=== PATIENT | male | born 1975 | race African-American/Black ===

== ENCOUNTER 2017-02-23 21:37 | Emergency (ER) | payer MEDICAID, OTHER ==
[~2017-02-23] VITALS: Ht 180.3 cm; Wt 81.0 kg
[~2017-02-23 21:37] MED LIST: IOHEXOL-300 100 ML BOTTLE ONE; SODIUM CHLORIDE 0.9% 10ML VIAL ONE
[2017-02-23] MEDS ORDERED: SODIUM CHLORIDE 0.9% 1,000 ML IV ONE (22:33)
[2017-02-23] MEDS ORDERED: MORPHINE SULFATE 4 MG/ML CPJ (NOT FOR IM USE) IV STA (22:33)
[2017-02-23] MEDS ORDERED: ONDANSETRON HCL 4MG/2ML VIAL IV STA (22:33)
[2017-02-23 22:56] LABS: BASOPHILS % 0.3 % (0.0-2.0); EOSINOPHILS % 0.5 % (0.0-5.0); LYMPHOCYTES % 13.6 % (20.0-50.0); MEAN CORPUSCULAR HEMOGLOBIN 32.2 pg (28.0-32.0); MEAN CORPUSCULAR VOLUME 96.3 fL (80.0-94.0); MEAN PLATELET VOLUME 7.6 fl (7.4-10.4); MONOCYTES % 6.2 % (2.0-8.0); NEUTROPHILS % 79.4 % (40.0-76.0); PLATELET 229 x1000/uL (130-400); RED BLOOD CELL COUNT 3.73 mill/uL (4.7-6.1); RED CELL DISTRIBUTION WIDTH 13.1 % (11.6-14.6)
[2017-02-23 22:58] LABS: CHLORIDE 109 mEq/L (98-107)
[2017-02-23 23:04] LABS: CARBON DIOXIDE 25 mEq/L (21-32)
[2017-02-24] MEDS ORDERED: KETOROLAC 30MG/ML VIAL IV ONE (02:30)
[2017-02-24 02:44] VITALS: BP 116/68
== END 2017-02-24 02:47 | disposition home or self-care (01) ==
LOC: ER 21:37
DX: S01.112A Laceration without foreign body of left eyelid and periocular area, initial encounter (principal); S00.11XA Contusion of right eyelid and periocular area, initial encounter; M54.9 Dorsalgia, unspecified; F17.200 Nicotine dependence, unspecified, uncomplicated; W10.9XXA Fall (on) (from) unspecified stairs and steps, initial encounter; Y93.89 Activity, other specified; Y92.89 Other specified places as the place of occurrence of the external cause; Y99.8 Other external cause status
CPT/HCPCS: 36415; 70450; 70486; 71010; 72070; 72100; 74177; 80048; 85025; 96361; 96374; 96375; 99291; A4216; J1885; J2270; J2405; J7030; Q9967; Z7610

== ENCOUNTER 2018-03-14 15:19 | Emergency (ER) | payer MEDICAID ==
[2018-03-14 15:59] LABS: BASOPHILS % 0.5 % (0.0-2.0); EOSINOPHILS % 0.7 % (0.0-5.0); HEMATOCRIT. 39.2 % (42.0-52.0); HEMOGLOBIN. 13.1 g/dL (14.0-18.0); LYMPHOCYTES % 25.1 % (20.0-50.0); MEAN CORPUSCULAR HEMOGLOBIN 32.6 pg (28.0-32.0); MEAN PLATELET VOLUME 7.8 fl (7.4-10.4); MONOCYTES % 6.6 % (2.0-8.0); NEUTROPHILS % 67.1 % (40.0-76.0); PLATELET 223 x1000/uL (130-400); RED CELL DISTRIBUTION WIDTH 12.7 % (11.6-14.6)
[2018-03-14] MEDS ORDERED: LORAZEPAM 2MG/ML CPJ ONE (15:59)
[2018-03-14] MEDS ORDERED: LORAZEPAM 2MG/ML CPJ IV ONE (16:00)
[2018-03-14 16:01] LABS: CHLORIDE 112 mEq/L (98-107)
[2018-03-14 16:04] LABS: INR 1.1; PARTIAL THROMBOPLASTIN TIME 23.7 sec (23.4-31.0); PROTHROMBIN TIME 10.6 sec (9.1-11.1)
[2018-03-14 16:08] LABS: LDL CHOLESTEROL 143 mg/dL (5-100)
[2018-03-14] MEDS ORDERED: ALTEPLASE IV STA (16:13)
[2018-03-14] MEDS ORDERED: ALTEPLASE 100MG/VIAL IV STA (16:13)
[2018-03-14 16:20] LABS: ETHANOL BLOOD 305 mg/dL
[2018-03-14] MEDS ORDERED: IOHEXOL-350 100 ML BOTTLE ONE (17:08)
[2018-03-14] MEDS ORDERED: MORPHINE SULFATE 2 MG/ML CPJ (NOT FOR IM USE) IV ONE ×2 (17:45→20:45)
[2018-03-14 20:40] VITALS: BP 126/91
== END 2018-03-14 20:40 | disposition short-term general hospital (02) ==
LOC: ER 15:19
DX: I63.9 Cerebral infarction, unspecified (principal); G81.94 Hemiplegia, unspecified affecting left nondominant side; R47.81 Slurred speech; F10.129 Alcohol abuse with intoxication, unspecified; Y90.8 Blood alcohol level of 240 mg/100 ml or more; F17.210 Nicotine dependence, cigarettes, uncomplicated; F12.90 Cannabis use, unspecified, uncomplicated
CPT/HCPCS: 36415; 37195; 70450; 70496; 70498; 71045; 80053; 83721; 84484; 85025; 85610; 85730; 86850; 86900; 86901; 93005; 96374; 96375; 99291; G0482; J2060; J2270; J2997; Q9967

== ENCOUNTER 2018-11-15 03:16 | Emergency (ER) | payer MEDICAID ==
[~2018-11-15] VITALS: Ht 180.3 cm; Wt 173.0 kg
[2018-11-15] MEDS ORDERED: ACETAMINOPHEN 500MG TABLET PO ONE (04:15)
[2018-11-15 04:34] LABS: BASOPHILS % 0.7 % (0.0-2.0); EOSINOPHILS % 1.6 % (0.0-5.0); HEMATOCRIT. 37.3 % (42.0-52.0); HEMOGLOBIN. 12.5 g/dL (14.0-18.0); LYMPHOCYTES % 30.1 % (20.0-50.0); MEAN CORPUSCULAR VOLUME 98.9 fL (80.0-94.0); MONOCYTES % 11.3 % (2.0-8.0); NEUTROPHILS % 56.3 % (40.0-76.0); PLATELET 216 x1000/uL (130-400); RED BLOOD CELL COUNT 3.78 mill/uL (4.7-6.1); RED CELL DISTRIBUTION WIDTH 13.7 % (11.6-14.6)
[2018-11-15 04:37] LABS: CHLORIDE 108 mEq/L (98-107)
[2018-11-15] MEDS ORDERED: POTASSIUM CHLORIDE 20MEQ TABLET SR PO NR (05:00)
[2018-11-15 05:31] VITALS: BP 131/90
== END 2018-11-15 06:00 | disposition home or self-care (01) ==
LOC: ER 04:09
DX: K62.5 Hemorrhage of anus and rectum (principal); R10.9 Unspecified abdominal pain; F12.10 Cannabis abuse, uncomplicated; F17.210 Nicotine dependence, cigarettes, uncomplicated; Z72.89 Other problems related to lifestyle
CPT/HCPCS: 36415; 74176; 80053; 83690; 85025; 86850; 86900; 86901; 99284; 99406; Z7610

== ENCOUNTER 2019-06-07 18:44 | Emergency (ER) | payer SELFPAY ==
[~2019-06-07] VITALS: Ht 182.9 cm; Wt 77.0 kg
[2019-06-07] MEDS ORDERED: SODIUM CHLORIDE 0.9% 1,000 ML IV ONE (20:55)
[2019-06-07 21:23] LABS: BASOPHILS % 0.3 % (0.0-2.0); EOSINOPHILS % 0.1 % (0.0-5.0); HEMATOCRIT. 33.4 % (42.0-52.0); HEMOGLOBIN. 11.3 g/dL (14.0-18.0); LYMPHOCYTES % 9.4 % (20.0-50.0); MEAN CORPUSCULAR HEMOGLOBIN 33.1 pg (28.0-32.0); MEAN CORPUSCULAR VOLUME 97.9 fL (80.0-94.0); MEAN PLATELET VOLUME 7.4 fl (7.4-10.4); MONOCYTES % 6.5 % (2.0-8.0); NEUTROPHILS % 83.7 % (40.0-76.0); PLATELET 206 x1000/uL (130-400); RED BLOOD CELL COUNT 3.41 mill/uL (4.7-6.1); RED CELL DISTRIBUTION WIDTH 12.8 % (11.6-14.6)
[2019-06-07 21:30] LABS: CHLORIDE 108 mEq/L (98-107)
[2019-06-07 21:34] LABS: ETHANOL BLOOD 140 mg/dL
[2019-06-08] VITALS: BP 133/91
== END 2019-06-08 01:18 | disposition home or self-care (01) ==
LOC: ER 18:44
DX: F10.129 Alcohol abuse with intoxication, unspecified (principal); Y90.6 Blood alcohol level of 120-199 mg/100 ml
CPT/HCPCS: 36415; 70450; 71045; 80053; 80320; 83690; 84484; 85025; 93005; 99284; J7030; G0480